=== PATIENT | male | born 1965 | race Caucasian/White ===

== ENCOUNTER 2024-02-20 14:56 | Emergency (ER) | payer OTHER ==
[~2024-02-20] VITALS: Ht 167.6 cm; Wt 75.0 kg
[2024-02-20 15:07] VITALS: BP 145/83; RESP 12; TEMP 98.4; O2SAT 97
[2024-02-20 15:12] VITALS: PULSE 69
== END 2024-02-20 17:07 | disposition home or self-care (01) ==
LOC: ER 14:56
DX: S01.01XA Laceration without foreign body of scalp, initial encounter (principal); Z88.6 Allergy status to analgesic agent; X58.XXXA Exposure to other specified factors, initial encounter; Y93.9 Activity, unspecified; Y92.89 Other specified places as the place of occurrence of the external cause; Y99.8 Other external cause status
CPT/HCPCS: 12002; 99282